=== PATIENT | female | born 1995 | race African-American/Black ===

== ENCOUNTER 2021-04-05 20:12 | Emergency (ER) | payer OTHER, SELFPAY ==
[2021-04-05 20:14] VITALS: BP 137/67; PULSE 77; RESP 14; TEMP 37; O2SAT 96; BMI 30.4
[2021-04-05] MEDS: SODIUM CHLORIDE 0.9% 1,000 ML 1000 ML IV (20:43)
[2021-04-05] MEDS: ONDANSETRON 4 MG/2 ML INJ IV (20:43)
--- NOTE | 2021-04-05 20:58 | ED_ITS ---
HPI - GI Bleed General Chief complaint: GI Bleed Stated complaint: vomiting blood Time Seen by Provider: 04/05/21 20:33 Source: patient Mode of arrival: Ambulatory Limitations: no limitations History of Present Illness HPI Narrative: 25-year-old woman currently on board a [employer] ship diagnosed on board. Presents today complaining of uncontrolled vomiting with dry heaves and now is having flecks of blood in the emesis. Has been unable to keep food or liquids down for the last 3 days. She is having no vaginal discharge or bleeding. No fevers, coughs, chills, headaches or back pain. Related Data Previous Rx's Medication Instructions Recorded ondansetron 4 mg disintegrating 4 mg PO Q8H PRN #20 tab 04/05/21 tablet Allergies Allergy/AdvReac Type Severity Reaction Status Date / Time No Known Drug Allergies Allergy Verified 04/05/21 20:31 Review of Systems Review of Systems Narrative: Remainder of complete review of systems is otherwise unremarkable except for that included in the HPI. Patient History Social History Smoking Status: Unknown if ever smoked Smoking Status: Unknown if ever smoked alcohol intake frequency: holidays/special occasions only Substance Use Type: does not use Exam Narrative Exam Narrative: General: Healthy appearing, in no acute distress. Able to give a complete and coherent history. Well-nourished well-developed HEENT: Moist mucous membranes, normal sclera with reactive pupils, Respiratory: Lungs are clear to auscultation, no wheezing no rales no rhonchi. Full and symmetrical air movement Cardiac: Regular rate and rhythm no murmurs no bruits Abdomen: Soft, nontender, good bowel tones, no flank pain Skin: Warm and dry, no rashes Neurologic: Grossly neurologically intact with no obvious asymmetries or abnormalities Extremities: No trauma, well perfused Psych: Cooperative, appropriate insight and affect Initial Vital Signs Initial Vital Signs: Vital Signs Temperature 98.6 F 04/05/21 20:14 Pulse Rate 77 04/05/21 20:14 Respiratory Rate 14 04/05/21 20:14 Blood Pressure 137/67 04/05/21 20:14 Pulse Oximetry 96 04/05/21 20:14 Course Orders Ordered: ED Orders 04/05/21 20:45 Complete Blood Count AUTO DIFF Stat Comprehensive Metabolic Panel Stat Type and Screen Stat 10/20/21 20:59 US OB <= 14 weeks fetus Stat Discontinued Medications Sodium Chloride (Normal Saline 0.9%) 1,000 mls @ 1,000 mls/hr IV BOLUS ONE Stop: 04/05/21 21:32 Last Admin: 04/05/21 20:43 Dose: 1,000 mls/hr Documented by: SAL Ondansetron HCl (Ondansetron 4 Mg/2 Ml Inj) 4 mg IV NOW ONE Stop: 04/05/21 20:34 Last Admin: 04/05/21 20:43 Dose: 4 mg Documented by: SAL Vital Signs Vital signs: Vital Signs - 8 hr 04/05/21 20:14 Temperature 98.6 F Pulse Rate 77 Respiratory Rate 14 Blood Pressure 137/67 Pulse Oximetry 96 MDM - GI Bleed Lab Data Result diagrams: 04/05/21 20:45 04/05/21 20:45 Labs: Lab Results 04/05/21 04/05/21 04/05/21 Range/Units 20:45 20:45 20:45 WBC 6.3 (4.5-11.0) X10^3/uL RBC 4.43 (4.0-5.2) X10^6/uL Hgb 12.3 (12.0-16.0) g/dL Hct 35.7 L (36-46) % MCV 80.4 (80-100) fL MCH 27.7 (26-34) PG MCHC 34.4 (30-36) % RDW 14.1 (11.6-14.8) % Plt Count 225 (150-400) X10^3/uL Neut % (Auto) 60.0 (50-75) % Lymph % (Auto) 30.9 (25-40) % [place] % (Auto) 5.5 (3-14) % Eos % (Auto) 2.3 (2-4) % Baso % (Auto) 1.3 (0-2) % Neut # (Auto) 3800 (0299-9306) /uL Lymph # (Auto) 1900 (6938-8979) /uL [place] # (Auto) 300 (0-900) /uL Eos # (Auto) 100 (0-450) /uL Baso # (Auto) 100 (0-100) /uL Sodium 136 L (137-145) mmol/L Potassium 3.8 (3.4-5.1) mmol/L Chloride 103 (98-107) mmol/L Carbon Dioxide 26 (22-32) mmol/L BUN 8 (7-17) mg/dL Creatinine 0.85 (0.52-1.04) mg/dL Estimated GFR > 60.0 (>60) mL/min BUN/Creatinine Ratio 9.4 (6-22) Glucose 87 (70-100) mg/dL Calcium 9.0 (8.4-10.2) mg/dL Total Bilirubin 0.3 (0.2-1.3) mg/dL AST 17 (14-36) IU/L ALT 10 (<35) IU/L Alkaline Phosphatase 44 (38-126) U/L Total Protein 7.2 (6.3-8.2) g/dL Albumin 4.0 (3.5-5.0) g/dL Globulin 3.2 (1.7-4.1) g/dL Albumin/Globulin Ratio 1.3 (1.0-2.8) Blood Type A Positive Antibody Screen Negative Urine Dip Bedside Urine Glucose Negative Bedside Urine Bilirubin - Negative Bedside Urine Ketone - Negative Urine Specific [place] 1.015 Bedside Urine Occult Blood - Negative Bedside Urine pH 7.0 Bedside Urine Protein - Negative Bedside Urine Urobilinogen - Negative Bedside Urine Nitrite - Negative Bedside Urine Leukocytes - Negative Esterase Imaging Data US - abdomen: Radiologist's Impression: FINDINGS:? ? Fetus:? Single living intrauterine identified.? heart rate measures 165 beats per minute. ? BPD:? 13 weeks 3 days HC:? 13 weeks 1 day HC:? 13 weeks 0 days FL:? 12 weeks 4 days ? Composite ultrasound estimated gestational age 13 weeks 0 days. ? Measurement variability in dating:? +/- 4 weeks by LMP, +/- 7 days by mean sac diameter (use before 6 weeks gestation if crown-rump length not able to be measured), +/- 5 days by crown-rump length (up to 8 weeks 6 days gestation), +/- 7 days by crown-rump length (up to 13 weeks 6 days gestation).? ? Maternal organs:? There is a 6.3 x 3.7 x 6.0 centimeter complex right ovarian mass that contains probable fat, fluid and solid component which may represent dermoid or teratoma. ? ? IMPRESSION:? ? 1. Single living intrauterine with ultrasound estimated gestational age of 13 weeks 0 days corresponding to ultrasound CHANELLE of October 11, 2021. ? 2. Complex right ovarian mass with probable fat, fluid and solid component.? Differential includes dermoid and teratoma.? Recommend gynecologic consultation? Dictated by: Natty Gaffney MD, PhD on 04/05/2021 at 21:54 ? ? MDM Narrative Medical decision making narrative: 25-year-old woman currently on board a [employer] ship diagnosed on board. Presents today complaining of uncontrolled vomiting with dry heaves and now is having flecks of blood in the emesis. Has been unable to keep food or liquids down for the last 3 days. Lab work is reassuring. Ultrasound is done to confirm and dates. Single intrauterine at 13 weeks with an EDC of October 12 2019. Also noted a complex right ovarian mass with concern for either a dermoid or te ratoma. Findings are reviewed with the patient. She will be returning to [place] shortly. Will provide her a copy of the ultrasound and she understands she needs to follow-up with a customer service officer. To be given a prescription of Zofran to help with nausea. She was able to keep liquids and solids down in the emergency department, she is safe for home discharge Discharge Plan Departure Patient Disposition: Home Clinical Impression: Mass of right ovary Intrauterine normal Qualifiers: Trimester: second trimester Qualified Code(s): Z34.92 - Encounter for supervision of normal , unspecified, second trimester Instructions: DI for -- Discomforts and Remedies Activity Restrictions/Additional Instructions: Thank you for coming in today. Congratulations on your ! The baby looks nice and normal at 13 weeks. Your due date is estimated at October 11, 2021 Also noted on the ultrasound was a finding in your right ovary that is concerning for either a dermoid or teratoma. When you see your OBGYN when he gets back to [place], she will definitely need to know about this. I have given you copies of your ultrasound report as well as the lab work done today. I will give you a prescription for ondansetron/Zofran that dissolves under the tongue that can help with nausea. I would also recommend that you crab picker some vitamins when you feel this prescription. Prescriptions: New ondansetron 4 mg tablet,disintegrating 4 mg PO Q8H PRN (Reason: nausea and vomiting) Qty: 20 RF: 0
--- NOTE | 2021-04-05 20:59 | DI.US.S_ITS ---
PROCEDURE: US OB <= 14 WEEKS FETUS INDICATIONS: VOMITING; UNSURE DATES OUTSIDE/PRIOR DATING DATA: Last menstrual period (LMP): January 13, 2021 LMP-based estimated date of delivery (CHANELLE): October 20, 2021 First dating scan (date and location): April 05, 2021 Estimated date of delivery (CHANELLE) from first dating scan: October 11, 2021 TECHNIQUE: Real-time scanning was performed of the fetus and maternal pelvic organs, with image documentation. Endovaginal scanning was also performed to better visualize the fetus and maternal ovaries. COMPARISON: None. FINDINGS: Fetus: Single living intrauterine identified. heart rate measures 165 beats per minute. BPD: 13 weeks 3 days HC: 13 weeks 1 day HC: 13 weeks 0 days FL: 12 weeks 4 days Composite ultrasound estimated gestational age 13 weeks 0 days. Measurement variability in dating: +/- 4 weeks by LMP, +/- 7 days by mean sac diameter (use before 6 weeks gestation if crown-rump length not able to be measured), +/- 5 days by crown-rump length (up to 8 weeks 6 days gestation), +/- 7 days by crown-rump length (up to 13 weeks 6 days gestation). Maternal organs: There is a 6.3 x 3.7 x 6.0 centimeter complex right ovarian mass that contains probable fat, fluid and solid component which may represent dermoid or teratoma. IMPRESSION: 1. Single living intrauterine with ultrasound estimated gestational age of 13 weeks 0 days corresponding to ultrasound CHANELLE of October 11, 2021. 2. Complex right ovarian mass with probable fat, fluid and solid component. Differential includes dermoid and teratoma. Recommend gynecologic consultation Dictated by: Natty Gaffney MD, PhD on 04/05/2021 at 21:54 Approved by: Natty Gaffney MD, PhD on 04/05/2021 at 21:58
[2021-04-05 21:08] LABS: Add Manual Diff / Slide Review NO; Basophils Absolute Auto 100 /uL (0-100); Basophils Percent Auto 1.3 % (0-2); Eosinophils Absolute Auto 100 /uL (0-450); Eosinophils Percent Auto 2.3 % (2-4); Hematocrit 35.7 % (36-46); Hemoglobin 12.3 g/dL (12.0-16.0); Lymphocytes Absolute Auto 1900 /uL (1100-4500); Lymphocytes Percent Auto 30.9 % (25-40); Mean Corpuscular HGB Conc 34.4 % (30-36); Mean Corpuscular Hemoglobin 27.7 PG (26-34); Mean Corpuscular Volume 80.4 fL (80-100); Monocytes Absolute Auto 300 /uL (0-900); Monocytes Percent Auto 5.5 % (3-14); Neutrophils Absolute Auto 3800 /uL (1500-7000); Platelet Count 225 X10^3/uL (150-400); Red Blood Cell Count 4.43 X10^6/uL (4.0-5.2); Red Cell Distribution Width 14.1 % (11.6-14.8); White Blood Cell Count 6.3 X10^3/uL (4.5-11.0)
[2021-04-05 21:19] LABS: Alanine Aminotransferase 10 IU/L (<35); Albumin Globulin Ratio 1.3 (1.0-2.8); Alkaline Phosphatase 44 U/L (38-126); Aspartate Aminotransferase 17 IU/L (14-36); BUN Creatinine Ratio 9.4 (6-22); Bilirubin Total 0.3 mg/dL (0.2-1.3); Blood Urea Nitrogen 8 mg/dL (7-17); Carbon Dioxide 26 mmol/L (22-32); Chloride 103 mmol/L (98-107); Estimated Glomerular Filt Rate > 60.0 mL/min (>60); Globulin 3.2 g/dL (1.7-4.1); Glucose 87 mg/dL (70-100); HEMOLYSIS < 15 (0-50); Potassium 3.8 mmol/L (3.4-5.1); Sodium 136 mmol/L (137-145); Total Protein 7.2 g/dL (6.3-8.2)
[2021-04-05 23:02] VITALS: BP 115/58; PULSE 71; RESP 16; O2SAT 100
== END 2021-04-05 23:02 | disposition home or self-care (01) ==
PROVIDERS: Emergency Provider Emergency Medicine
DX: O21.9 Vomiting of pregnancy, unspecified (principal); O34.81 Maternal care for other abnormalities of pelvic organs, first trimester; N83.201 Unspecified ovarian cyst, right side; Z3A.13 13 weeks gestation of pregnancy
CPT/HCPCS: 36415; 76801; 76817; 80053; 81003; 85025; 86850; 86900; 86901; 96361; 96374; 99284; J2405